=== PATIENT | female | born 1975 ===

== ENCOUNTER 2020-03-15 16:59 | Emergency (ER) | payer MEDICAID ==
[~2020-03-15] VITALS: Ht 149.9 cm; Wt 63.5 kg
[2020-03-15] MEDS ORDERED: Ketorolac 30mg Inj IM ONE (17:30)
[2020-03-15 17:35] VITALS: BP 156/109
--- NOTE | 2020-03-15 17:36 | NUR ---
ED Nurse Note:pt. came with right 5th finger injury and pain, pain meds are given
--- NOTE | 2020-03-15 18:12 | Emergency Room Report ---
History of Present Illness General Chief Complaint: Upper Extremity Injury Present Illness HPI 44-year-old female with no symptom past medical history here complaining of right fifth finger pain with obvious deformity noted. Patient reports that couple weeks ago she had an object fall on it and was already seen in a different emergency room at the time of injury. Patient was diagnosed with right fifth phalanx displaced fracture fracture however reports that" nothing was done and I did not receive a splint or any pain medication.". Obvious deformity, dislocation noted however the injury appears to be old. Patient is neurovascularly intact. Denies any tingling or numbness. Has not taken medication for symptom relief. Denies . Denies all other injuries. Allergies: Coded Allergies: AMOXICILLIN (Verified Allergy, Unknown, 03/15/20) DIPHENHYDRAMINE (Verified Allergy, Unknown, 03/15/20) MEPERIDINE (Verified Allergy, Unknown, 03/15/20) MORPHINE (Verified Allergy, Unknown, 03/15/20) COVID-19 Screening Contact w/high risk pt: No Experienced COVID-19 symptoms?: No COVID-19 Testing performed JUICE TESTER: Yes COVID-19 Screening: Negative COVID-19 COVID-19 Testing Source: 1 month ago Patient History Past Medical History: see triage record Past Surgical History: none Pertinent Family History: none Now: No Reviewed Nursing Documentation: PMH: Agreed; PSxH: Agreed Review of Systems All Other Systems: negative except mentioned in HPI Physical Exam Vital Signs Date Time Temp Pulse Resp B/P (MAP) Pulse Ox O2 Delivery O2 Flow Rate FiO2 03/15/20 17:18 98.2 86 18 156/109 (125) 99 Room Air Sp02 EP Interpretation: reviewed, normal General Appearance: no apparent distress, alert, GCS 15, non-toxic Head: normocephalic, atraumatic Eyes: bilateral eye normal inspection, bilateral eye PERRL ENT: hearing grossly normal, normal pharynx, no angioedema, normal voice Neck: full range of motion, supple/symm/no masses Respiratory: chest non-tender, lungs clear, normal breath sounds, no rhonchi, no respiratory distress, no retraction, no accessory muscle use, no wheezing, speaking full sentences Cardiovascular #1: regular rate, rhythm, no edema Cardiovascular #2: 2+ carotid (R), 2+ carotid (L), 2+ radial (R), 2+ radial (L), 2+ dorsalis pedis (R), 2+ dorsalis pedis (L) Rectal: deferred Musculoskeletal: back normal, tender - right fifth finger PIP and MCP, other - obvious deformity, finger dislocation Neurologic: alert, motor strength/tone normal, oriented x3, sensory intact, r esponsive, speech normal Psychiatric: judgement/insight normal, memory normal, mood/affect normal, no suicidal/homicidal ideation Skin: no rash Lymphatic: no adenopathy Procedures Splinting Splinting : Consent: Verbal Location: right fifth finger Pre-Made Type: metal Pre-Proc Neuro Vasc Exam: normal Post-Proc Neuro Vasc Exam: normal Patient Tolerated: Well Complications: None Progress At this time the dislocation appears to be old, however I was able to straighten finger and placed it in to a metal splint, noreen tape it to the finger next to it and apply Bartolo bandage to the affected area all the way to the wrist. Medical Decision Making PA Attestation All my diagnosis and treatment plans were reviewed ad discussed with my supervising physician Dr. Byers Diagnostic Impression: Primary Impression: Finger sprain Additional Impression: Fracture of finger ER Course 44-year-old female with no symptom past medical history here complaining of right fifth finger pain with obvious deformity noted. Patient reports that couple weeks ago she had an object fall on it and was already seen in a different emergency room at the time of injury. Patient was diagnosed with right fifth phalanx displaced fracture fracture however reports that" nothing was done and I did not receive a splint or any pain medication.". Obvious deformity, dislocation noted however the injury appears to be old. Patient is neurovascularly intact. Denies any tingling or numbness. Has not taken medication for symptom relief. Denies . Denies all other injuries. Ddx considered but are not limited to: Hand sprain, hand sprain, hand fracture Vital signs: are WNL, pt. is afebrile H&PE are most consistent with : Displaced fracture right fifth digit with dislocation, finger sprain ORDERS: Finger x-ray, Robaxin, Tylenol patient reports she is allergic to ibuprofen ED INTERVENTIONS: Toradol DISCHARGE: At this time pt. is stable for d/c to home. Will provide printed patient care instructions, and any necessary prescriptions. Care plan and follow up instructions have been discussed with the patient prior to discharge. Take medication as directed, follow primary care provider beverage specialist as well as hand specialist, if worsening symptoms return to the emergency room Other X-Ray Diagnostic Results Other X-Ray Diagnostic Results : X-Ray ordered: Right finger # of Views/Limited Vs Complete: 3 View Indication: Pain EP Interpretation: Yes PA Xray: Interpretation reviewed, by supervising MD, and agrees with findings. Interpretation: other - Dislocation of fifth digit as well as fracture displaced Impression: Other - Displaced fracture right fifth digit dislocation appears to be old Electronically Signed by: Linette SINGH Scribe Text FINDINGS: Bones/joints: Comminuted, mildly displaced fifth proximal phalangeal base fracture, likely involving the MCP joint. Fifth middle phalanx volar plate nondisplaced tiny fracture. No dislocation. Soft tissues: Circumferential fifth digit soft tissue edema. No radiopaque foreign body. IMPRESSION: 1. Comminuted, mildly displaced fifth proximal phalangeal base fracture, likely involving the MCP joint. 2. Fifth middle phalanx volar plate nondisplaced tiny fracture. 3. Circumferential fifth digit soft tissue edema. Last Vital Signs Date Time Temp Pulse Resp B/P (MAP) Pulse Ox O2 Delivery O2 Flow Rate FiO2 03/15/20 17:35 98.2 86 18 156/109 99 Room Air Disposition: HOME, SELF-CARE Condition: Stable Scripts Acetaminophen* (TYLENOL EXTRA STRENGTH*) 500 Mg Tablet 500 MG ORAL Q8H PRN for Prn Headache/Temp > 101, #30 TAB 0 Refills Prov: Linette Castellanos 03/15/20 Methocarbamol* (ROBAXIN-500*) 500 Mg Tablet 500 MG ORAL TID PRN for For Pain, #15 TAB 0 Refills Prov: Linette Castellanos 03/15/20 Referrals: [facility]ERR[facility] (PCP) Patient Instructions: Finger Fracture, [id number], Finger Sprain, [id number] Additional Instructions: Take medication as directed, follow-up with beverage specialist, if worsening symptom return to the emergency room Linette Castellanos Mar 15, 2020 18:12
[2020-03-15] MEDS ORDERED: TYLENOL EXTRA500 MG ORAL (18:17)
[2020-03-15] MEDS ORDERED: ROBAXIN-500MG ORAL (18:17)
--- NOTE | 2020-03-15 18:18 | Diagnostic Imaging Report ---
EXAM: XR Right Fingers, 2 or More Views CLINICAL HISTORY: TRAUMA TECHNIQUE: Frontal, lateral and oblique views of the fingers of the right hand. COMPARISON: No relevant prior studies available. FINDINGS: Bones/joints: Comminuted, mildly displaced fifth proximal phalangeal base fracture, likely involving the MCP joint. Fifth middle phalanx volar plate nondisplaced tiny fracture. No dislocation. Soft tissues: Circumferential fifth digit soft tissue edema. No radiopaque foreign body. IMPRESSION: 1. Comminuted, mildly displaced fifth proximal phalangeal base fracture, likely involving the MCP joint. 2. Fifth middle phalanx volar plate nondisplaced tiny fracture. 3. Circumferential fifth digit soft tissue edema.
[2020-03-15 18:20] VITALS: BP 156/109
--- NOTE | 2020-03-15 18:20 | NUR ---
ED Nurse Note:finger splint was placed on right 5th finger Pt cleared by health care Provider for discharge. DC instructions/prescription was given and explained to pt and verbalized understanding of teachings. All medical deviecs such as ID band removed. Pt is AAO x4, ambulatory and left with all personal belongings.
== END 2020-03-15 18:22 | disposition home or self-care (01) ==
LOC: EMR 17:32
DX: S62.606A Fracture of unspecified phalanx of right little finger, initial encounter for closed fracture (principal); X58.XXXA Exposure to other specified factors, initial encounter; Y93.9 Activity, unspecified; Y92.9 Unspecified place or not applicable; Z88.1 Allergy status to other antibiotic agents; Z88.5 Allergy status to narcotic agent; Z88.8 Allergy status to other drugs, medicaments and biological substances
CPT/HCPCS: 29130; 73140; J1885; Z7502; 99283